=== PATIENT | female | born 1940 | race African-American/Black ===

== ENCOUNTER → 2016-07-22 | Outpatient (CLI) | payer OTHER ==
[2013-08-22 10:31] VITALS: BP 165/70
--- NOTE | 2016-07-22 12:44 | RAD ---
EXAM: DIGITAL SCREEN BILAT W/CAD. HISTORY: Screening. COMPARISON: None available, this is considered a new baseline. FINDINGS: Digital mammography was performed. Computer-aided detection (CAD) was utilized. The breast parenchyma demonstrates scattered fibroglandular densities (tissue density B). No dominant suspicious mass, suspicious microcalcifications, or architectural distortion is identified. Bilateral dermal lesions were marked. IMPRESSION: No mammographic evidence of malignancy. BI-RADS CATEGORY: 2 BENIGN FINDING(S) RECOMMENDED FOLLOW-UP: 12M 12 MONTH FOLLOW-UP PQRS compliance statement: Patient information was entered into a reminder system with a target due date for the next mammogram. Mammography is a sensitive method for finding small breast cancers, but it does not detect them all and is not a substitute for careful clinical examination. A negative mammogram does not negate a clinically suspicious finding and should not result in delay in biopsying a clinically suspicious abnormality. "Our facility is accredited by the [employer] Mammography Program."
== END | disposition home or self-care (01) ==
LOC: MAMMO 10:20
PROVIDERS: ATTEND Family Medicine
DX: Z12.31 Encounter for screening mammogram for malignant neoplasm of breast (principal)
CPT/HCPCS: G0202; 77067

== ENCOUNTER → 2018-09-02 | Outpatient (CLI) | payer OTHER ==
[2013-08-22 10:31] VITALS: BP 165/70
--- NOTE | 2018-09-02 17:46 | RAD ---
MRI of the cervical spine without contrast 09/02/2018 CLINICAL HISTORY: Neck pain which radiates down the right arm. TECHNIQUE: Unenhanced T1-weighted, T2-weighted and inversion recovery sagittal and gradient echo and T2-weighted axial images of the cervical spine were obtained. FINDINGS: There is straightening of the normal cervical lordosis. Degenerative signal changes are seen involving all of the disks of the cervical spine. Loss of height of the C4-5, C5-6, C6-7 and C7-T1 discs is noted. Degenerative signal changes are seen within the marrow surrounding these discs. No area of abnormal signal intensity is seen involving the cervical spinal cord. At the C2-3 disc space there is a minimal generalized disc bulge. Degenerative changes are seen involving the uncovertebral and facet joints bilaterally. These findings do not result in significant central spinal canal or neural foraminal stenosis. At the C3-4 disc space there is a mild generalized disc bulge. Degenerative changes are seen involving the uncovertebral and facet joints bilaterally. These findings do not result in significant central spinal canal stenosis. Mild bilateral neural foraminal stenosis is seen. At the C4-5 disc space there is a mild generalized disc bulge. Degenerative changes are seen involving the uncovertebral and facet joints bilaterally. These findings do not result in significant central spinal canal stenosis. Mild bilateral neural foraminal stenosis is seen. At the C5-6 disc space there is a mild generalized disc bulge. Degenerative changes are seen involving the uncovertebral and facet joints bilaterally. These findings do not result in significant central spinal canal stenosis. Mild bilateral neural foraminal stenosis is seen. At the C6-7 disc space there is a mild generalized disc bulge. Degenerative changes are seen involving the uncovertebral and facet joints, left greater than right. These findings do not result in significant central spinal canal stenosis. Mild to moderate left neural foraminal stenosis is seen. The right neural foramen is patent. At the C7-T1 disc space there is a mild generalized disc bulge. Degenerative changes are seen involving the facet joints bilaterally. These findings efface the anterior and posterior CSF resulting in mild central spinal canal stenosis with minimal cord impingement. Mild to moderate left greater than right neural foraminal stenosis is seen. Impression: Degenerative changes are seen throughout the cervical spine. These findings result in mild central spinal canal stenosis with minimal cord impingement at C7-T1. Multilevel neural foraminal stenosis is seen as discussed above. Electronically signed by: Bladimir Cota MD (09/02/2018 5:43 PM) [id number]
== END | disposition home or self-care (01) ==
LOC: MRI 09:29
PROVIDERS: ATTEND Psychiatry & Neurology Neurology
DX: M47.22 Other spondylosis with radiculopathy, cervical region (principal); M48.02 Spinal stenosis, cervical region; M50.23 Other cervical disc displacement, cervicothoracic region
CPT/HCPCS: 72141